=== PATIENT | female | born 1960 | race African-American/Black ===

== ENCOUNTER 2016-06-10 15:31 | Emergency (ER) | payer MEDICAID ==
[~2016-06-10] VITALS: Ht 144.8 cm; Wt 52.6 kg
[2016-06-10 16:19] LABS: Basophils # (auto) 0 uL; Basophils % (auto) 0.6 % (0.0-2.0); Eosinophils # (auto) 0.1 uL; Eosinophils % (auto) 0.9 % (0.0-7.0); Hematocrit 46.6 % (36.0-46.0); Lymphocytes # (auto) 3.1 uL; Lymphocytes % (auto) 46.2 % (10.0-50.0); Mean Corpuscular Hemoglobin 27.4 pg (28.0-32.0); Mean Corpuscular Hgb Conc. 32.2 g/dL (32.0-36.0); Mean Corpuscular Volume 84.9 fL (80.0-100.0); Mean Platelet Volume 9.4 fL (7.4-10.4); Monocytes # (auto) 0.2 uL; Monocytes % (auto) 3.7 % (0.0-12.0); Neutrophils # (auto) 3.2 uL; Neutrophils % (auto) 48.6 % (37.0-80.0); Platelet Count (auto) 287 10^3/uL (140-450); Red Cell Distribution Width 13.1 % (11.6-16.0); White Blood Cell 6.6 10^3/uL (4.4-10.8)
[2016-06-10 16:23] LABS: BUN/Creatinine Ratio 9.8; Bilirubin, Total 0.7 mg/dL (0.2-1.0); Calcium 10.1 mg/dL (8.5-10.1); Potassium 3.4 mmol/L (3.5-5.1); Total Protein 7.7 g/dL (6.4-8.2)
[2016-06-10 21:50] VITALS: BP 152/86
== END 2016-06-10 22:10 | disposition home or self-care (01) ==
LOC: ER 15:34
DX: I10 Essential (primary) hypertension (principal); E11.9 Type 2 diabetes mellitus without complications; J45.909 Unspecified asthma, uncomplicated; E78.5 Hyperlipidemia, unspecified; J44.9 Chronic obstructive pulmonary disease, unspecified; Z88.8 Allergy status to other drugs, medicaments and biological substances
CPT/HCPCS: 36415; 80053; 84484; 85025; 93005